=== PATIENT | female | born 1945 | race Caucasian/White ===

== ENCOUNTER → 2016-06-14 | Outpatient (CLI) | payer MEDICARE, MEDICAID ==
[~2016-06-14] MED LIST: ADVIL200 MG; ALBUTEROL2.5 MG/0.5; COLACE100 MG; FLONASE 50 MCG/16 GM; HYDROCORTISONE20 GM; LEVOTHROID (S100 MCG; LIPITOR40 MG; LOPERAMIDE2 MG; MAXZIDE-751 TAB; MILK OF MA400 MG/5 M; MIRALAX17 GM; MYLICON OR GAS-80 MG; NEOSPORIN1 PKT; PHENOBARB60 MG; PRILOSEC20 MG; SELSUN BLUE MO207 ML; TEGRETOL200 MG; TENEX1 MG; TYLENOL EXTRA500 MG; VITAMIN D-40400 UNIT; VITAMIN D1000 UNIT; ZYRTEC10 MG
[2016-06-14 08:54] LABS: BASOPHIL % 0.6 %; EOSINOPHIL # 0.2 K/uL (0.0-0.5); EOSINOPHIL % 3.8 %; HEMATOCRIT 39.3 % (33.0-46.0); HEMOGLOBIN 12.7 g/dL (10.0-15.0); IMMATURE GRANULOCYTE % 0.2 %; LYMPHOCYTE # 2.4 K/uL (0.8-4.0); LYMPHOCYTE % 47.7 %; MCH 31.8 pg (27.0-34.0); MCHC 32.3 gm/dL (32.0-36.5); MCV 98.3 fl (83.0-98.0); MONOCYTE # 0.4 K/uL (0.0-1.0); MONOCYTE % 7.2 %; MPV 10.3 fl (9.4-12.4); NEUTROPHIL % 40.5 %; NRBC % 0 /100WBC (0-0.00); PLATELET COUNT 263 K/uL (150-450); RDW-CV 12.2 % (11.9-14.6)
[2016-06-14 09:20] LABS: ALBUMIN 3.3 gm/dL (3.5-5.0); ALK PHOS 87 IU/L (33-138); ALT 30 IU/L (12-78); ANION GAP 9.6 (10.0-19.0); AST 24 IU/L (10-40); BLOOD UREA NITROGEN 17 mg/dL (6-24); CALCIUM 8.8 mg/dL (8.5-10.5); CHLORIDE 101 mMol/L (96-110); CO2 33 mMol/L (22-32); CREATININE 0.9 mg/dL (0.5-1.1); ESTIMATED GFR (MDRD EQUATION) > 60; POTASSIUM 4.6 mMol/L (3.7-5.1); SODIUM 139 mMol/L (135-145); TOTAL BILIRUBIN 0.2 mg/dL (0.0-1.5); TOTAL PROTEIN 6.9 g/dL (6.0-8.4)
== END | disposition disaster alternative care site (69) ==
LOC: LBETH 06-13 07:36
PROVIDERS: Psychiatry & Neurology Neurology
DX: E03.9 Hypothyroidism, unspecified (principal); G40.901 Epilepsy, unspecified, not intractable, with status epilepticus; R60.0 Localized edema; Z79.899 Other long term (current) drug therapy